=== PATIENT | male | born 1980 | race Caucasian/White ===

== ENCOUNTER → 2021-06-14 09:59 | Outpatient (CLI) | payer BC, SELFPAY ==
[2021-06-14 21:56] LABS: SARS-CoV-2 RNA PCR Positive
== END ==
PROVIDERS: PCP Physician Assistant; Visit Provider Physician Assistant
DX: U07.1 COVID-19 (principal)
CPT/HCPCS: C9803; U0003; U0005

== ENCOUNTER → 2022-09-09 11:43 | Outpatient (CLI) | payer BC, SELFPAY ==
--- NOTE | ~2022-09-09 | US_ITS ---
US venous doppler [facility] DATE: 09/09/2022 12:17 INDICATION: Left lower extremity edema TECHNIQUE: Real-time and color flow imaging and Doppler analysis of the veins of the left lower extre mity COMPARISON: None FINDINGS: The left greater saphenous vein is patent. There is spontaneous and phasic flow and normal augmentation and color flow signal and normal compression of the deep veins of the left lower extremi ty. An approximately 1.3 x 3.7 x 2.8 cm left groin lymph node is noted. Another left groin lymph node nilesh suring 1.2 x 3.2 x 4 cm is noted. IMPRESSION: No evidence of deep venous thrombosis of the left lower extremity Reviewed, dictated and finalized at [facility]. Reviewed, dictated and finalized at [facility].
== END ==
PROVIDERS: PCP Physician Assistant; Visit Provider Physician Assistant
DX: R60.0 Localized edema (principal)
CPT/HCPCS: 93971